=== PATIENT | female | born 1985 | race Asian ===

== ENCOUNTER 2017-01-14 08:47 | Emergency (ER) | payer MEDICAID ==
[2017-01-14] MEDS ORDERED: NS 1,000 ML IV ONE (09:41)
[2017-01-14] MEDS ORDERED: ONDANSETRON 4 MG/2 ML VIAL IVP ONE (09:42)
--- NOTE | 2017-01-14 09:43 | EDPHY ---
H & P Stated Complaint: lower abdomingal cramping starting this AM Time Seen by Provider: 01/14/17 09:33 HPI/ROS: CHIEF COMPLAINT: Nausea vomiting menstrual cramps HISTORY OF PRESENT ILLNESS: This is a 31-year-old female presenting to the emergency department complaining of lightheadedness dizziness feeling faint onset this morning around 8 o'clock. Patient states her menstrual cycle started yesterday around 1600, Increased cramping this morning with nausea vomiting" I laid on the floor at work because I felt like I was going to pass out". at this time patient reports still feeling somewhat lightheaded but does not feel like she is going to pass out, intermittent in abdominal cramping. denies any fever chills diarrhea REVIEW OF SYSTEMS: Constitutional: No fever, no chills. Eyes: No discharge. ENT: No sore throat. Cardiovascular: No chest pain, no palpitations. Respiratory: No cough, no shortness of breath. Gastrointestinal: abdominal cramping, nausea vomiting. denies any diarrhea Genitourinary: No dysuria Musculoskeletal: No back pain. Skin: No rashes. Neurological: No headache. dizziness Source: Patient - Personal History LMP (Females 10-55): Now Current Tetanus/Diphtheria Vaccine: Unsure Current Tetanus Diphtheria and Acellular Pertussis (TDAP): Unsure - Medical/Surgical History Hx Asthma: No Hx Chronic Respiratory Disease: No Hx Diabetes: No Hx Cardiac Disease: No Hx Renal Disease: No Hx Cirrhosis: No Hx Alcoholism: No Hx HIV/AIDS: No Hx Splenectomy or Spleen Trauma: No Other PMH: denies - Social History Smoking Status: Never smoked - Physical Exam Exam: General Appearance: Alert, no distress. HEENT: Pupils equal and round no pallor or injection. Mucous membranes moist. Respiratory: There are no retractions, lungs are clear to auscultation. Cardiovascular: Regular rate and rhythm. Gastrointestinal: Abdomen is soft Nondistended. suprapubic tenderness on palpation, no masses, bowel sounds normal. Neurological: no focal deficits. answering questions appropriately Skin: Warm and dry, no rashes. no pallor Musculoskeletal: Neck is supple nontender. Extremities: symmetrical, full range of motion. Psychiatric: Patient is oriented X 3, calm acting appropriately Constitutional: Initial Vital Signs Temperature (C) 36.4 C 01/14/17 09:02 Heart Rate 45 L 01/14/17 09:02 Respiratory Rate 18 01/14/17 09:02 Blood Pressure 95/41 L 01/14/17 09:02 O2 Sat (%) 97 01/14/17 09:02 O2 Delivery Mode Room Air Allergies/Adverse Reactions: No Known Allergies Allergy (Unverified 01/14/17 09:01) Home Medications: Medication Instructions Recorded NK [No Known Home Meds] 01/14/17 Medical Decision Making ED Course/Re-evaluation: discussed ED plan of care: IV fluids, CBC, BMP, UA will re-evaluate 1035: patient re-evaluation, feeling better, denies any abdominal cramping at this time or nausea vomiting 1045: discussed lab results, the discharge home---> stable, discussed discharge instructions with patient Differential Diagnosis: Other differential diagnosis considered but not limited to electrolyte imbalance , ovarian cyst, pyelonephritis and UTI - Data Points Laboratory Results: Laboratory Results 01/14/17 09:45 01/14/17 09:45 01/14/17 01/14/17 01/14/17 09:45 09:45 09:45 WBC 9.84 10^3/uL H 10^3/uL (3.80-9.50) RBC 4.24 10^6/uL 10^6/uL (4.18-5.33) Hgb 13.5 g/dL g/dL (12.6-16.3) Hct 39.8 % % (38.0-47.0) MCV 93.9 fL fL (81.5-99.8) MCH 31.8 pg pg (27.9-34.1) MCHC 33.9 g/dL g/dL (32.4-36.7) RDW 13.4 % % (11.5-15.2) Plt Count 155 10^3/uL 10^3/uL (150-400) MPV 11.3 fL fL (8.7-11.7) Neut % (Auto) 86.1 % H % (39.3-74.2) Lymph % (Auto) 8.9 % L % (15.0-45.0) [place] % (Auto) 3.8 % L % (4.5-13.0) Eos % (Auto) 0.2 % L % (0.6-7.6) Baso % (Auto) 0.4 % % (0.3-1.7) Nucleat RBC Rel Count 0.0 % % (0.0-0.2) Absolute Neuts (auto) 8.47 10^3/uL H 10^3/uL (1.70-6.50) Absolute Lymphs (auto) 0.88 10^3/uL L 10^3/uL (1.00-3.00) Absolute Monos (auto) 0.37 10^3/uL 10^3/uL (0.30-0.80) Absolute Eos (auto) 0.02 10^3/uL L 10^3/uL (0.03-0.40) Absolute Basos (auto) 0.04 10^3/uL 10^3/uL (0.02-0.10) Absolute Nucleated RBC 0.00 10^3/uL 10^3/uL (0-0.01) Immature Gran % 0.6 % % (0.0-1.1) Immature Gran # 0.06 10^3/uL 10^3/uL (0.00-0.10) Sodium 141 mEq/L mEq/L (134-144) Potassium 4.3 mEq/L mEq/L (3.5-5.2) Chloride 103 mEq/L mEq/L (97-110) Carbon Dioxide 25 mEq/l mEq/l (22-31) Anion Gap 13 mEq/L mEq/L (8-16) BUN 17 mg/dL mg/dL (7-23) Creatinine 0.8 mg/dL mg/dL (0.6-1.0) Estimated GFR > 60 Glucose 161 mg/dL H mg/dL (70-100) Calcium 9.3 mg/dL mg/dL (8.5-10.4) Beta HCG, Qual NEGATIVE Urine Color Urine Appearance Urine pH Ur Specific [place] Urine Protein Urine Ketones Urine Blood Urine Nitrate Urine Bilirubin Urine Urobilinogen Ur Leukocyte Esterase Urine RBC Urine WBC Ur Epithelial Cells Amorphous Sediment Urine Mucus Urine Glucose 01/14/17 09:25 WBC RBC Hgb Hct MCV MCH MCHC RDW Plt Count MPV Neut % (Auto) Lymph % (Auto) [place] % (Auto) Eos % (Auto) Baso % (Auto) Nucleat RBC Rel Count Absolute Neuts (auto) Absolute Lymphs (auto) Absolute Monos (auto) Absolute Eos (auto) Absolute Basos (auto) Absolute Nucleated RBC Immature Gran % Immature Gran # Sodium Potassium Chloride Carbon Dioxide Anion Gap BUN Creatinine Estimated GFR Glucose Calcium Beta HCG, Qual Urine Color [place] Urine Appearance MODERATELY TURBID Urine pH 5.0 (5.0-7.5) Ur Specific [place] 1.033 H (1.002-1.030) Urine Protein 2+ H (NEGATIVE) Urine Ketones 1+ H (NEGATIVE) Urine Blood 3+ H (NEGATIVE) Urine Nitrate NEGATIVE (NEGATIVE) Urine Bilirubin NEGATIVE (NEGATIVE) Urine Urobilinogen NEGATIVE EU EU (0.2-1.0) Ur Leukocyte Esterase NEGATIVE (NEGATIVE) Urine RBC 50-182 /hpf H /hpf (0-3) Urine WBC 1-3 /hpf /hpf (0-3) Ur Epithelial Cells TRACE /lpf /lpf (NONE-1+) Amorphous Sediment PRESENT /hpf /hpf (NONE-1+) Urine Mucus 3+ /lpf H /lpf (NONE-1+) Urine Glucose NEGATIVE (NEGATIVE) Medications Given: Discontinued Medications Sodium Chloride (Ns) 1,000 mls @ 0 mls/hr IV ONCE ONE PRN Reason: Wide Open Stop: 01/14/17 09:42 Last Admin: 01/14/17 09:50 Dose: 1,000 mls Ibuprofen (Motrin) 600 mg PO EDNOW ONE Stop: 01/14/17 10:45 Last Admin: 01/14/17 11:15 Dose: 600 mg Ondansetron HCl (Zofran) 4 mg IVP EDNOW ONE Stop: 01/14/17 09:43 Last Admin: 01/14/17 09:55 Dose: 4 mg Departure - Departure Disposition: Home, Routine, Self-Care Clinical Impression: Moderate cramps with menses Abdominal pain Qualifiers: Abdominal location: left lower quadrant Qualified Code(s): R10.32 - Left lower quadrant pain Condition: Good Instructions: Dysmenorrhea (ED) Additional Instructions: 1. increase fluid intake 2. he can take Tylenol 1000 mg every 6 hours, and/or ibuprofen 6-800 mg every 6-8 hours for abdominal cramps 3. if any symptoms worsen or increased return to the emergency department 4. follow up with PCP as needed Referrals: [facility] [Other] - As per Instructions Stand Alone Forms: Work Excuse
[2017-01-14 09:49] LABS: COLOR AMBER; LEUKOCYTE ESTERASE,URINE NEGATIVE (NEGATIVE); NITRITE,URINE NEGATIVE (NEGATIVE)
[2017-01-14 09:53] LABS: AMORPHOUS PRESENT /hpf (NONE-1+); MUCUS 3+ /lpf (NONE-1+); RBC,URINE 50-182 /hpf (0-3)
[2017-01-14 09:53] LABS: % IMMATURE GRANULYOCYTES 0.6 % (0.0-1.1); ABSOLUTE IMMATURE GRANULOCYTES 0.06 10^3/uL (0.00-0.10); ADD DIFF? NO; ADD MORPH? NO; ADD SCAN? NO; ATYPICAL LYMPHOCYTE FLAG 0 (0-99); FRAGMENT RBC FLAG 0 (0-99); HEMATOCRIT 39.8 % (38.0-47.0); HEMOGLOBIN 13.5 g/dL (12.6-16.3); LEFT SHIFT FLG 10 (0-99); LIPEMIA HEMOLYSIS FLAG 90 (0-99); MEAN CELL HEMOGLOBIN 31.8 pg (27.9-34.1); MEAN CELL HEMOGLOBIN CONCENTR. 33.9 g/dL (32.4-36.7); MEAN CELL VOLUME 93.9 fL (81.5-99.8); MEAN PLATELET VOLUME 11.3 fL (8.7-11.7); PLATELET CLUMPS FLAG 20 (0-99); PLATELET COUNT 155 10^3/uL (150-400); RED BLOOD CELL COUNT 4.24 10^6/uL (4.18-5.33); RED CELL DISTRIBUTION WIDTH 13.4 % (11.5-15.2)
[2017-01-14 10:11] LABS: ANION GAP 13 mEq/L (8-16); CALCIUM 9.3 mg/dL (8.5-10.4); CARBON DIOXIDE 25 mEq/l (22-31); CHLORIDE 103 mEq/L (97-110); CREATININE 0.8 mg/dL (0.6-1.0); GLOMERULAR FILTRATION RATE > 60; GLUCOSE 161 mg/dL (70-100); POTASSIUM 4.3 mEq/L (3.5-5.2); SODIUM 141 mEq/L (134-144)
[2017-01-14] MEDS ORDERED: IBUPROFEN 600 MG TAB PO ONE (10:44)
[2017-01-14 11:37] VITALS: BP 97/66; PULSE 74; RESP 16; TEMP 97.3; O2SAT 96
== END 2017-01-14 11:37 | disposition home or self-care (01) ==
DX: N94.6 Dysmenorrhea, unspecified (principal)
CPT/HCPCS: 96374; J2405

== ENCOUNTER 2018-08-31 15:52 | Emergency (ER) | payer MEDICAID ==
[2018-08-31 15:59] VITALS: BP 114/75
[2018-08-31] MEDS ORDERED: DEXAMETHASONE 10 MG/ML VIAL PO ONE (16:10)
--- NOTE | 2018-08-31 16:10 | EDPHY ---
H & P Smoking Status: Never smoked Time Seen by Provider: 08/31/18 16:00 HPI/ROS: CHIEF COMPLAINT: Sore throat,"I lost my voice" HISTORY OF PRESENT ILLNESS: 33-year-old immunocompetent female complaining of sore throat for the past 7 days with development of hoarse voice the past 48 hr. Denies: URI symptoms, cough, headache, otalgia, nuchal rigidity, chest pain, dyspnea, abdominal pain, flank pain, left upper quadrant pain PRIMARY CARE PROVIDER: Tino colvin REVIEW OF SYSTEMS: 10 systems reviewed and negative with the exception of the elements mentioned in the history of present illness PAST MEDICAL & SURGICAL HISTORY: No pertinent medical or surgical history SOCIAL HISTORY: Nonsmoker PHYSICAL EXAM (Prior to examination, patient consented to physical exam, hands were washed and my usual and customary physical exam procedures followed) 1) GENERAL: Well-developed, well-nourished, alert and oriented. Appears nontoxic 2) HEAD: Normocephalic, atraumatic 3) HEENT: Pupils equal, round, reactive to light bilaterally. Sclera anicteric. [Nasopharynx: Clear oropharynx: Bilateral, symmetrical tonsillar enlargement with no exudate, no pointing of the uvula, hoarse voice. Sublingual space is soft with no induration no tenderness. No evidence of Colby's angina. Bilateral ears with no evidence of otitis media otitis externa , nonbulging non erythematous tympanic membranes no otorrhea, no erythema of the external auditory canal. Bilateral mastoid nontender non boggy. 4) NECK: Full range of motion, no meningeal signs. No adenopathy. Submental submandibular spaces are soft, no induration. No crepitus. 5) LUNGS: Clear auscultation bilaterally, no wheezes, no rhonchi, no retractions. 6) HEART: Regular rate and rhythm, no murmur, no heave, no gallop. 7) ABDOMEN: No guarding, no rebound, no focal tenderness, negative McBurney's, negative Talley's, negative Rovsing's, negative peritoneal sign, no left upper quadrant pain, no splenomegaly. 8) MUSCULOSKELETAL: Moving all extremities, no focal areas of tenderness, no obvious trauma. No peripheral edema or discoloration. 9) BACK: No CVA tenderness, no midline vertebral tenderness, no fluctuance, no step-off, no obvious trauma, no visual or palpable abnormality. 10) SKIN: No rash, no petechiae. 11) Psychiatric: Patient is oriented X 3, there is no agitation. DIFFERENTIAL DIAGNOSIS: In no particular order, my differential diagnosis includes, but is not limited to, strep pharyngitis, viral pharyngitis, peritonsillar abscess, retropharyngeal abscess or plegmon, mononucleosis, meningitis, Lemierre syndrome. (Divya Boone) Constitutional: Initial Vital Signs Temperature (C) 37.1 C 08/31/18 15:56 Heart Rate 86 08/31/18 15:56 Respiratory Rate 18 08/31/18 15:56 Blood Pressure 114/75 08/31/18 15:56 O2 Sat (%) 95 08/31/18 15:56 O2 Delivery Mode Room Air Allergies/Adverse Reactions: Penicillins Allergy (Verified 08/31/18 15:56) Home Medications: Medication Instructions Recorded Clindamycin HCl [Clindamycin] 300 mg PO TID 7 Days cap 08/31/18 methylPREDNISolone [Medrol Dose 4 mg PO DAILY #1 ea 08/31/18 Osorio] MDM/Departure - MDM Medications Given: Discontinued Medications Dexamethasone (Decadron Injection) 10 mg PO EDNOW ONE Stop: 08/31/18 16:11 Last Admin: 08/31/18 16:17 Dose: 10 mg ED Course/Re-evaluation: Doubt peritonsillar abscess, Lemierre syndrome, retropharyngeal phlegmon. At this time I do not think that imaging studies indicated. Plan will be oral clindamycin (penicillin allergy), Medrol Dosepak, follow up with ENT . Patient feels comfortable being discharged. All questions and concerns addressed by myself. Patient given my usual and customary discharge precautions and instructions regarding their clinical impression. Care of patient under supervision of secondary supervising physician Dr Ferrari . (Divya Boone) The patient was evaluated and managed by the physician assistant family teacher. I have reviewed this chart and I agree with the findings and plan of care as documented , as indicated by my signature. I am the secondary supervising physician. ( Shalini Ferrari) - Depart Disposition: Home, Routine, Self-Care Clinical Impression: Tonsillitis, Laryngitis Condition: Good Instructions: Laryngitis (ED), Tonsillitis (ED) Additional Instructions: Return to the ER immediately if you cannot swallow, have drooling, fevers, neck stiffness, cannot open your jaw, or any other symptoms that concern you. Stand Alone Forms: Work Excuse Prescriptions: Clindamycin HCl [Clindamycin] 300 mg PO TID 7 Days cap methylPREDNISolone [Medrol Dose Osorio] 4 mg PO DAILY #1 ea Referrals: Pepe Beach MD [Medical Doctor] - 2-3 days, call for appt.
== END 2018-08-31 16:26 | disposition home or self-care (01) ==
DX: J03.90 Acute tonsillitis, unspecified (principal); J04.0 Acute laryngitis
CPT/HCPCS: J1100

== ENCOUNTER 2018-09-14 18:57 | Emergency (ER) | payer MEDICAID | END 2018-09-14 21:08 | disposition home or self-care (01) ==

== ENCOUNTER 2018-10-25 14:15 | Emergency (ER) | payer MEDICAID ==
--- NOTE | 2018-10-25 14:58 | EDPHY ---
H & P Stated Complaint: Flu-like symptoms Time Seen by Provider: 10/25/18 14:57 HPI/ROS: HPI: This is a 33-year-old female who presents with Chief Complaint: Flu-like symptoms Location: Body Quality: Flu-like symptoms Duration: 3 weeks Signs and Symptoms: no fever, no nausea, no vomiting, no diarrhea, no urinary symptoms, no chest pain, no shortness of breath, no wheezing, + nonproductive cough, no sore throat, no neck stiffness, no joint pain, no swollen glands, no ear pain, no rash, + fatigue Timing: Daily Severity: Moderate Context: Patient is generally healthy, received influenza vaccine May 2018 , presents with complaints of generalized fatigue, nonproductive cough, sore throat and runny nose for the last 3 weeks. She reports that she was seen in this emergency room at the beginning of September for similar symptoms. 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 No history of lung disease. Modifying Factors: None Comment: ROS: A comprehensive 10 system review of systems is otherwise negative aside from elements mentioned in the history of present illness. MEDICAL/SURGICAL/SOCIAL HISTORY: Medical history: Generally healthy. Does not take any regular medications. Last menstrual period October 08, 2017. 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 Family history noncontributory. CONSTITUTIONAL: Well-developed, well-nourished, female, awake and alert, no obvious distress HEENT: Atraumatic and normocephalic, PERRL, EOMI. Nares patent; no rhinorrhea; no nasal mucosal edema. Tympanic membranes clear. Oropharynx clear, no exudate and moist pink mucosa. Airway patent. No lymphadenopathy. No meningismus. Cardiovascular: Normal S1/S2, regular rate, regular rhythm, without murmur rub or gallop. PULMONARY/CHEST: Symmetrical and nontender. Clear to auscultation bilaterally. Good air movement. No accessory muscle usage. ABDOMEN: Soft, nondistended, nontender, no rebound, no guarding, no peritoneal signs, no masses or organomegaly. No CVAT. EXTREMITIES: 2/2 pulses, strength 5/5, no deformities, no clubbing, no cyanosis or edema. NEUROLOGICAL: no focal neuro deficits. GCS 15. SKIN: Warm and dry, no erythema. no rash. Good capillary refill. Source: Patient Exam Limitations: No limitations - Personal History LMP (Females 10-55): 8-14 Days Ago Current Tetanus/Diphtheria Vaccine: Yes - Medical/Surgical History Hx Asthma: No Hx Chronic Respiratory Disease: No Hx Diabetes: No Hx Cardiac Disease: No Hx Renal Disease: No Hx Cirrhosis: No Hx Alcoholism: No Hx HIV/AIDS: No Hx Splenectomy or Spleen Trauma: No Other PMH: denies - Social History Smoking Status: Never smoked Constitutional: Initial Vital Signs Temperature (C) 37.2 C 10/25/18 14:21 Heart Rate 77 10/25/18 14:21 Respiratory Rate 18 10/25/18 14:21 Blood Pressure 120/79 10/25/18 14:21 O2 Sat (%) 96 10/25/18 14:21 O2 Delivery Mode Room Air Allergies/Adverse Reactions: Penicillins Allergy (Verified 10/25/18 14:25) Home Medications: Medication Instructions Recorded Clindamycin HCl [Clindamycin] 300 mg PO TID 7 Days cap 08/31/18 methylPREDNISolone [Medrol Dose 4 mg PO DAILY #1 ea 08/31/18 Osorio] Codeine Phosphate/Guaifenesin 10 ml PO Q6 #120 ml 09/14/18 [Codeine-Guaifen 10-100 mg/5 ml] Medical Decision Making - Diagnostics Imaging Results: Imaging Impressions Chest X-Ray 10/25/18 15:06 Impression: Mild basilar atelectasis with no acute findings. ED Course/Re-evaluation: Vital signs reviewed and stable upon arrival. No systemic signs. IV access, laboratory studies, chest x-ray, influenza test ordered Patient given 1 L normal saline No signs of tonsillar abscess, otitis media, meningitis, dehydration, bronchitis , pneumonia Suspect this is viral related with the possibility of vitamin-D deficiency and/ or depression 1520: Chest x-ray my read via PAC shows no opacity, no effusion, no widened mediastinum, no pneumothorax. 1552: Laboratory studies reviewed. No signs of leukocytosis/anemia/platelet dysfunction/ISAK/infectious mononucleosis/electrolyte imbalance/. Influenza negative Advised to [facility] for further laboratory testing. Suspect there may be a depression component but need to rule out vitamin D deficiency/thyroid disease. This patient was seen under the supervision of my secondary supervising physician. I evaluated care for this patient with attending. Differential Diagnosis: Adult fever including but not limited to viral syndromes including influenza, urinary tract infection, pneumonia and sepsis. - Data Points Laboratory Results: Laboratory Results 10/25/18 15:20 10/25/18 15:20 10/25/18 10/25/18 10/25/18 15:20 15:20 15:20 WBC 6.21 10^3/uL 10^3/uL (3.80-9.50) RBC 4.44 10^6/uL 10^6/uL (4.18-5.33) Hgb 13.5 g/dL g/dL (12.6-16.3) Hct 40.3 % % (38.0-47.0) MCV 90.8 fL fL (81.5-99.8) MCH 30.4 pg pg (27.9-34.1) MCHC 33.5 g/dL g/dL (32.4-36.7) RDW 12.4 % % (11.5-15.2) Plt Count 202 10^3/uL 10^3/uL (150-400) MPV 10.9 fL fL (8.7-11.7) Neut % (Auto) 61.4 % % (39.3-74.2) Lymph % (Auto) 27.9 % % (15.0-45.0) [place] % (Auto) 7.2 % % (4.5-13.0) Eos % (Auto) 2.4 % % (0.6-7.6) Baso % (Auto) 0.8 % % (0.3-1.7) Nucleat RBC Rel Count 0.0 % % (0.0-0.2) Absolute Neuts (auto) 3.81 10^3/uL 10^3/uL (1.70-6.50) Absolute Lymphs (auto) 1.73 10^3/uL 10^3/uL (1.00-3.00) Absolute Monos (auto) 0.45 10^3/uL 10^3/uL (0.30-0.80) Absolute Eos (auto) 0.15 10^3/uL 10^3/uL (0.03-0.40) Absolute Basos (auto) 0.05 10^3/uL 10^3/uL (0.02-0.10) Absolute Nucleated RBC 0.00 10^3/uL 10^3/uL (0-0.01) Immature Gran % 0.3 % % (0.0-1.1) Immature Gran # 0.02 10^3/uL 10^3/uL (0.00-0.10) Sodium 136 mEq/L mEq/L (135-145) Potassium 4.2 mEq/L mEq/L (3.5-5.2) Chloride 102 mEq/L mEq/L (97-110) Carbon Dioxide 27 mEq/l mEq/l (22-31) Anion Gap 7 mEq/L mEq/L (6-14) BUN 10 mg/dL mg/dL (7-23) Creatinine 0.8 mg/dL mg/dL (0.6-1.0) Estimated GFR > 60 Glucose 94 mg/dL mg/dL (70-100) Calcium 9.4 mg/dL mg/dL (8.5-10.4) Total Bilirubin 0.5 mg/dL mg/dL (0.1-1.4) Conjugated Bilirubin 0.2 mg/dL mg/dL (0.0-0.5) Unconjugated Bilirubin 0.3 mg/dL mg/dL (0.0-1.1) AST 64 IU/L H IU/L (14-46) ALT 98 IU/L H IU/L (9-52) Alkaline Phosphatase 49 IU/L IU/L (38-126) Total Protein 6.9 g/dL g/dL (6.3-8.2) Albumin 4.1 g/dL g/dL (3.5-5.0) Beta HCG, Qual NEGATIVE Nasal Influenza A PCR Nasal Influenza B PCR Monoscreen NEGATIVE (NEGATIVE) 10/25/18 14:49 WBC RBC Hgb Hct MCV MCH MCHC RDW Plt Count MPV Neut % (Auto) Lymph % (Auto) [place] % (Auto) Eos % (Auto) Baso % (Auto) Nucleat RBC Rel Count Absolute Neuts (auto) Absolute Lymphs (auto) Absolute Monos (auto) Absolute Eos (auto) Absolute Basos (auto) Absolute Nucleated RBC Immature Gran % Immature Gran # Sodium Potassium Chloride Carbon Dioxide Anion Gap BUN Creatinine Estimated GFR Glucose Calcium Total Bilirubin Conjugated Bilirubin Unconjugated Bilirubin AST ALT Alkaline Phosphatase Total Protein Albumin Beta HCG, Qual Nasal Influenza A PCR NEGATIVE FOR FLU A (NEGATIVE) Nasal Influenza B PCR NEGATIVE FOR FLU B (NEGATIVE) Monoscreen Medications Given: Discontinued Medications Sodium Chloride (Ns) 1,000 mls @ 0 mls/hr IV ONCE ONE; Wide Open PRN Reason: Protocol Stop: 10/25/18 15:06 Last Admin: 10/25/18 15:23 Dose: 1,000 mls Departure - Departure Disposition: Home, Routine, Self-Care Clinical Impression: Viral syndrome, Chronic fatigue Condition: Good Instructions: Chronic Fatigue Syndrome (ED), Viral Syndrome (ED) Additional Instructions: Rest as much as possible until you are feeling better. Wash your hands frequently and eat a balanced diet. Consume a minimum of 8-10 glasses of water or electrolyte fluid replacement drinks that include Gatorade, Powerade, Pedialyte. Take Tylenol 650 mg every 4 hr and/or ibuprofen 600 mg every 8 hr as needed for pain, fever. Use [id number] Mucinex as needed for nasal congestion or cough. Please follow-up with your primary care provider for further evaluation of your chronic fatigue including vitamin-D deficiency. Referrals: [facility],. [Clinic] - As per Instructions Stand Alone Forms: Work Excuse
[2018-10-25] MEDS ORDERED: NS 1,000 ML IV ONE (15:05)
[2018-10-25 16:01] LABS: PLATELET COUNT 202 10^3/uL (150-400)
[2018-10-25 16:02] VITALS: BP 114/69
== END 2018-10-25 16:02 | disposition home or self-care (01) ==
DX: B34.9 Viral infection, unspecified (principal); R53.83 Other fatigue; E86.9 Volume depletion, unspecified